=== PATIENT | female | born 1965 | race Caucasian/White ===

== ENCOUNTER 2018-09-25 09:08 | Observation (INO) | payer MEDICARE ==
[~2018-09-25] VITALS: Ht 172.7 cm; Wt 119.0 kg
--- NOTE | 2018-09-25 09:25 | NUR ---
PATIENT TO ROOM VIA WHEELCHAIR AND PHYSICIAN AT BEDSIDE FOR EVAL
[2018-09-25 10:07] LABS: HEMATOCRIT 33.5 % (37.0-47.0); HEMOGLOBIN 11.4 g/dl (12.0-16.0); IMMATURE GRANULOCYTES 0.2 % (0.0-5.0); MEAN CELL VOLUME 90.8 fL CALC (80.0-100.0); MEAN CORPUSCULAR HGB 30.9 pG CALC (26.0-32.0); NEUT# 3.67 thou/uL (2.00-7.15); RED BLOOD COUNT 3.69 mill/uL (4.20-5.60); RED CELL DISTRI WIDTH 13.2 % (11.5-15.5)
[2018-09-25 10:18] LABS: ANION GAP 15 (6-22 (CALC)); BUN 19 mg/dL (7-17); BUN/CREATININE RATIO 17 (12-20 (CALC)); CARBON DIOXIDE 24 mmol/l (22-30); CHLORIDE 98 mmol/l (95-108); CREATININE 1.1 mg/dL (0.5-1.0); GFR 52 ML/MIN (>=60 (CALC)); GFR FOR AFR.AMER. > 60 ML/MIN (>=60 (CALC)); POTASSIUM 3.6 mmol/l (3.5-5.1); SODIUM 134 mmol/l (137-146)
--- NOTE | 2018-09-25 10:20 | NUR ---
PT'S AT NURSES DESK AND INFORMED STAFF THAT PT IS HAVING NAUSEA. NOTIFIED.
--- NOTE | 2018-09-25 10:30 | NUR ---
AT [facility] TO MEDICATE PT WITH ZOFRAN FOR NAUSEA. PT DENIES ANY NAUSEA BUT REPORTS FEELING FLUSHED, AND WEAKNESS TO ENTIRE BODY. PT CAN MOVE ALL EXTREMITIES WITH NO DIFFICULTY. MD NOTIFIED.
[2018-09-25] MEDS ORDERED: FERR SULFATE325 MG PO (10:42)
[2018-09-25] MEDS ORDERED: METFORMIN500 M2 PO (10:42)
[2018-09-25] MEDS ORDERED: LEVOTHYROXIN125 MC1 PO (10:43)
[2018-09-25] MEDS ORDERED: PRAMIPEXOLE1 MG PO (10:44)
[2018-09-25] MEDS ORDERED: AMITRIPTYLIN25 MG PO (10:44)
[2018-09-25] MEDS ORDERED: CRESTOR20 MG PO (10:45)
[2018-09-25] MEDS ORDERED: ACCUPRIL20 MG PO (10:45)
[2018-09-25] MEDS ORDERED: OXTELLAR XR600 MG PO (10:46)
[2018-09-25] MEDS ORDERED: VICTOZA18 MG/3 ML SC (10:46)
[2018-09-25] MEDS ORDERED: MAXZIDE-2537.5 MG/TA PO (10:46)
[2018-09-25] MEDS ORDERED: TRESIBA FL100 UNIT/M SC (10:47)
[2018-09-25] MEDS ORDERED: LEVEMIR100 UNIT/M SC (10:49)
--- NOTE | 2018-09-25 10:50 | NUR ---
MD AT BEDSIDE TO DISCUSS RESULTS AND PLAN OF CARE.
--- NOTE | 2018-09-25 11:39 | NUR ---
PT RETIRNED FROM CT AND IS RESTING COMFORTABLY IN STRETCHER. PT REPORTS MINIMAL SOB UPON LYING FLAT FOR CT SCAN. PT IN NAD AT THIS TIME, RESP EVEN AND UNLABORED. IV FLUIDS INFUSING AND SITE FREE FROM REDNESS AND EDEMA.
--- NOTE | 2018-09-25 12:15 | NUR ---
PT AMBULATED TO BATHROOM WITH A STEADY GAIT.
--- NOTE | 2018-09-25 13:15 | NUR ---
PT AWARE OF BUSY ED AND WAIT TIME. PT DENIES ANY NEEDS AT THIS TIME. CALL MCDANIELS WITHIN REACH.
--- NOTE | 2018-09-25 14:15 | NUR ---
PT RESTING COMFORATBLY IN STRETCHER IN NAD AND REQUESTS SOMETHING TO EAT. PT AWARE OF PENDING ADMISSION AND WAIT TIME. CALL MCDANIELS WITHIN REACH.
[2018-09-25 14:24] LABS: CHOLESTEROL HDL RATIO 3.2 (<4.4 (CALC))
--- NOTE | 2018-09-25 14:25 | NUR ---
REPORT TO ELDA KEN.
--- NOTE | 2018-09-25 14:35 | NUR ---
ELDA KEN AT BEDSIDE FOR TRANSPORT. BEDSIDE REPORT GIVEN AND PT TO ROOM IN STABLE CONDITION ON TELE MONITOR.
--- NOTE | 2018-09-25 14:35 | NUR ---
Admission Note Report Given to: ELDA KEN Transported by: Wheelchair X Stretcher Transported with: X Nurse Transporter X Patent IV O2 X Sba Underwriter
--- NOTE | 2018-09-25 14:38 | NUR ---
PT ARRIVED TO MS2 RM 263 VIA STRETCHER ACCOMPANIED BY EARLY LEARNING TEACHER. PT ALERT AND ORIENTED X3, AMBULATED TO BATHROOM THEN TO BED. ORIENTED TO ROOM AND CALL LIGHT, DISCUSSED POC, RESP EVEN AND UNLABORED. PT HAS EDEMA BLE GREATER ON THE LEFT. SEIZURE PRECAUTIONS IN PLACE. ADMISSION ASSESSMENT COMPLETED. CALL LIGHT IN REACH,CONTINUE TO MONITOR, SR. CONSULTANT AT BEDSIDE.
[2018-09-25 14:40] VITALS: BP 163/80
[2018-09-25 16:43] VITALS: BP 122/60
--- NOTE | 2018-09-25 17:19 | NUR ---
DISCUSSED US WITH PT, PT MEDICATED PER OCT. PT IN AGREEMENT. PHARMACEUTICAL SCIENTIST TAKING PT DOWN TO US. CONTINUE TO MONITOR.
--- NOTE | 2018-09-25 17:49 | NUR ---
PT RETURNED FROM US, NO SIGNS OF DISTRESS NOTED, RESP EVEN AND UNLABORED. CALL LIGHT IN REACH, CONTINUE TO MONITOR.
--- NOTE | 2018-09-25 19:15 | NUR ---
REPORT FROM JESUS MANUEL SCHROEDER. PT NOTED TO BED RESTING IN BED WITH AT BEDSIDE. ALERT AND ORIENTED. PT DENIES ANY PAIN OR DISCOMFORT AT THIS TIME. IV SITE APPEARS HEALTHY. INTERNAL REVENUE AGENT IN PLACE. RESPIRATIONS EVEN AND UNLABORED. DISCUSSED POC PT VERBALIZED UNDERSTANDING. CALL LIGHT WITHIN REACH. WILL CONTINUE TO MONITOR.
[2018-09-25 20:05] VITALS: BP 113/67
--- NOTE | 2018-09-25 21:40 | NUR ---
FIFTH GRADE TEACHER IN ROOM WITH PT ADMINISTERED MEDICATIONS ORDERED. PT C/O SWELLING IN FEET AND HAND. PT STATES SHE TAKES HER DIURETIC IN EVENING AND ALSO TAKES SEIZURE MEDICATION THAT OUR PHARMACY DOES NOT HAVE. WHEN PT ASKED IF SHE HAD SOMEONE WHO COULD BRING HER THE MEDICATION SHE STATES NO. FIFTH GRADE TEACHER PLACED CALL TO DR SAM INFORMED ABOUT DIURETICS MEDICATION TIMES AND SEIZURE MEDICATION NOT AVAILABLE. ORDERS RECIEVED TO CHANGE DIURETIC MEDICATION TIME AND OFFERED TO REPLACE SEIZURE MEDICATION WITH [facility] UNTIL PTS COULD BE BROUGHT IN. PT REFUSED STATING SHE DOES NOT LIKE THE WAY KEPPRA MAKES HER FEEL AND SHE WOULD WAIT TO TAKE HERS TOMORROW WHEN HER COULD GO GET IT.
--- NOTE | 2018-09-25 22:16 | NUR ---
PT NOW C/O GENERALIZED ITCHINESS NO RASH NOTED. PT ALSO STATES SHE FELT SOB FOR A COUPLE OF MINUTES DENIES ANY CHEST PAIN. VS WNL BP 123/77 75 18 99% RA. PT STATES SHE FEELS WEAK AND JUST DOES NOT FEEL GOOD. ORDER OBTAINED FOR BENADRYL.
[2018-09-25 23:55] VITALS: BP 138/76
--- NOTE | 2018-09-26 02:16 | NUR ---
PT RESTING IN BED WITH EYES CLOSED. REMAINS IN ROOM THROUGHOUT NIGHT. PT WAKES EASILY. SWELLING IN HAND AND FEET GOING DOWN SIGNIFICANTLY. PT STATES ITCHING HAS SUBSIDED. DENIES ANY PAIN OR DISCOMFORT AT THIS TIME. CALL LIGHT WITHIN REACH. WILL CONTINUE TO MONITOR.
[2018-09-26 04:10] VITALS: BP 113/72
--- NOTE | 2018-09-26 05:30 | NUR ---
PT C/O HEADACHE REQUESTING TYLENOL. HOT TOP LINER PLACED CALL TO DR. SAM AND ORDER RECIEVED FOR TYLENOL PO Q6H PRN. WILL ADMINISTERED WHEN AVAILABLE.
--- NOTE | 2018-09-26 07:29 | NUR ---
PT COMPLAIN OF CHEST PAIN ORDER EKG; NO S/S OF DISTRESS NOTED; WILL CONTINUE TO MONITOR.
[2018-09-26 07:52] VITALS: BP 137/77
--- NOTE | 2018-09-26 08:08 | NUR ---
ASSESSMENT COMPLETED; EXPLAINED TO PT WILL ADMINISTER NITRO, AN COCKTAIL; PT IMMEDIATELY STATED THAT "PAIN HAS GONE, DOES NOT WANT ABOVE MEDS;" ADMINISTERED SCHEDULED MEDS, TOLERATED WELL; RADIAL PULSES STRONG; PEDAL PULSE WEAK; ABD HYPOACTIVE SOUND; TELE IN PLACE; RASH NOTED ON BILAT FEET; WANTS TO KNOW IF SHE WILL BE GOING HOME TODAY AND IF HER SPOUSE SHOULD GET HER SEIZURE MEDICATION FROM HOME; TOLD HER HE SHOULD BRING BRING HER MEDS; NOT SURE IF SHE WILL BE DC TODAY; NOW TALKING ON THE PHONE; NO DISTRESS NOTED; VITALS STABLE; WILL CONTINUE TO MOINTOR. REQUEST TOAST AND PEDERSEN; KITCHEN AWARE;
--- NOTE | 2018-09-26 09:00 | NUR ---
PT CALLED, TOLD ONLINE BANKING SPECIALIST SHE HAD A SM SEZUIRE THAT LASTED 3/5 MINS; NO ONE PRESENT WHEN THIS HAPPENED; STEVIE GRANDE AWARE; PT SITTING UP IN BED ON HER PHONE NO S/S OF DISTRESS NOTED; WILL CONTINUE TO MONITOR.
[2018-09-26 11:05] VITALS: BP 118/76
--- NOTE | 2018-09-26 11:51 | NUR ---
PT LAYING IN BED WATCHING TV; SPOUSE AT BEDSIDE; WANTS TO KNOW WHEN LUNCH WILL BE HERE; VOICE NO OTHER CONCERNS; RESP EVEN AND UNLBAORED; NO S/S OF DISTRESS NOTED;
--- NOTE | 2018-09-26 15:11 | NUR ---
Discharge instructions given. Patient verbalizes understanding of same. Discharged in stable condition via Ambulatory to Home with spouse. All belongings sent with pt INCLUDING HER OWN MED [id number];
== END 2018-09-26 15:12 | disposition home or self-care (01) ==
LOC: ED 09:08 → ED-I 12:25 → ED 13:11 → MS2 13:12
PROVIDERS: Family Medicine; Nurse Practitioner Family; ADMIT Internal Medicine; ATTEND Internal Medicine
DX: R07.2 Precordial pain (principal); I12.9 Hypertensive chronic kidney disease with stage 1 through stage 4 chronic kidney disease, or unspecified chronic kidney disease; E11.22 Type 2 diabetes mellitus with diabetic chronic kidney disease; N18.3 Chronic kidney disease, stage 3 (moderate); G40.909 Epilepsy, unspecified, not intractable, without status epilepticus; E03.9 Hypothyroidism, unspecified; E78.5 Hyperlipidemia, unspecified; E11.42 Type 2 diabetes mellitus with diabetic polyneuropathy; K21.9 Gastro-esophageal reflux disease without esophagitis; E66.01 Morbid (severe) obesity due to excess calories; G25.81 Restless legs syndrome; D64.9 Anemia, unspecified; M79.89 Other specified soft tissue disorders; R06.02 Shortness of breath; Z79.4 Long term (current) use of insulin; Z86.711 Personal history of pulmonary embolism; Z82.49 Family history of ischemic heart disease and other diseases of the circulatory system; R53.1 Weakness; R42 Dizziness and giddiness
CPT/HCPCS: G0378; J1650; Q9967

== ENCOUNTER 2018-11-20 13:15 | Emergency (ER) | payer MEDICARE ==
[~2018-11-20] VITALS: Ht 172.7 cm; Wt 102.0 kg
[~2018-11-20 13:15] MED LIST: ACCUPRIL20 MG PO; AMITRIPTYLIN25 MG PO; CRESTOR20 MG PO; FERR SULFATE325 MG PO; LEVEMIR100 UNIT/M SC; LEVOTHYROXIN125 MC1 PO; MAXZIDE-2537.5 MG/TA PO; METFORMIN500 M2 PO; OXTELLAR XR600 MG PO; PRAMIPEXOLE1 MG PO; TRESIBA FL100 UNIT/M SC; VICTOZA18 MG/3 ML SC
[2018-11-20] MEDS ORDERED: TRESIBA FL100 UNIT/M SC (13:52)
[2018-11-20] MEDS ORDERED: MAXZIDE-2537.5 MG/TA PO (13:53)
[2018-11-20] MEDS ORDERED: LEVOTHYROXIN175 MC1 PO (14:03)
[2018-11-20] MEDS ORDERED: METFORMIN500 MG PO (14:04)
[2018-11-20 14:13] LABS: HEMATOCRIT 33.5 % (37.0-47.0); HEMOGLOBIN 11.3 g/dl (12.0-16.0); IMMATURE GRANULOCYTES 0.3 % (0.0-5.0); MEAN CELL VOLUME 88.6 fL CALC (80.0-100.0); MEAN CORPUSCULAR HGB 29.9 pG CALC (26.0-32.0); MEAN CORPUSCULAR HGB CONC 33.7 g/L CALC (32.0-36.0); NEUT# 5.89 thou/uL (2.00-7.15); RED BLOOD COUNT 3.78 mill/uL (4.20-5.60); RED CELL DISTRI WIDTH 12.9 % (11.5-15.5)
[2018-11-20 14:20] LABS: ALBUMIN 4.3 g/dL (3.2-5.0); ALKALINE PHOSPHATASE 74 u/l (38-126); ANION GAP 17 (6-22 (CALC)); BILIRUBIN, TOTAL 0.6 mg/dL (0.0-1.4); BUN 24 mg/dL (7-17); BUN/CREATININE RATIO 16 (12-20 (CALC)); CARBON DIOXIDE 26 mmol/l (22-30); CHLORIDE 98 mmol/l (95-108); CREATININE 1.5 mg/dL (0.5-1.0); GFR 36 ML/MIN (>=60 (CALC)); GFR FOR AFR.AMER. 44 ML/MIN (>=60 (CALC)); POTASSIUM 3.6 mmol/l (3.5-5.1); SGOT/AST 31 u/l (14-36); SODIUM 138 mmol/l (137-146); TOTAL PROTEIN 6.8 g/dL (6.3-8.2)
[2018-11-20 15:07] LABS: BARBITURATES NEGATIVE (NEGATIVE); COCAINE NEGATIVE (NEGATIVE); METHADONE NEGATIVE (NEGATIVE); OXCYCODONE NEGATIVE (NEGATIVE); TETRAHYDROCANNABIONOL NEGATIVE (NEGATIVE); TRICYLIC ANTIDEPRESSANTS POSITIVE (NEGATIVE); URINE BILIRUBIN - DIPSTICK NEGATIVE (NEGATIVE); URINE BLOOD DIPSTICK NEGATIVE (NEGATIVE); URINE COLOR YELLOW; URINE GLUCOSE - DIPSTICK NEGATIVE (NEGATIVE); URINE KETONE NEGATIVE (NEGATIVE); URINE LEUK ESTERASE NEGATIVE (NEGATIVE); URINE NITRITE - DIPSTICK NEGATIVE (Negative); URINE PROTEIN - DIPSTICK NEGATIVE (NEG-TRACE); URINE SPECIFIC GRAVITY 1.025; URINE UROBILINOGEN - DIPSTICK 0.2 E.U./dL (0.2)
[2018-11-20 15:41] VITALS: BP 104/54
== END 2018-11-20 16:01 | disposition home or self-care (01) ==
LOC: ED 13:15
PROVIDERS: Emergency Medicine
DX: R53.1 Weakness (principal); E11.40 Type 2 diabetes mellitus with diabetic neuropathy, unspecified; I10 Essential (primary) hypertension; G40.909 Epilepsy, unspecified, not intractable, without status epilepticus; R42 Dizziness and giddiness

== ENCOUNTER 2019-01-11 03:25 | Emergency (ER) | payer MEDICARE ==
[~2019-01-11] VITALS: Ht 170.2 cm; Wt 118.8 kg
[~2019-01-11 03:25] MED LIST changes: +LEVOTHYROXIN175 MC1 PO; +METFORMIN500 MG PO
[2019-01-11 04:01] LABS: URINE BILIRUBIN - DIPSTICK NEGATIVE (NEGATIVE); URINE BLOOD DIPSTICK NEGATIVE (NEGATIVE); URINE COLOR YELLOW; URINE GLUCOSE - DIPSTICK >=1000 mg/dL (NEGATIVE); URINE KETONE NEGATIVE (NEGATIVE); URINE LEUK ESTERASE NEGATIVE (NEGATIVE); URINE NITRITE - DIPSTICK NEGATIVE (Negative); URINE PROTEIN - DIPSTICK NEGATIVE (NEG-TRACE); URINE UROBILINOGEN - DIPSTICK 0.2 E.U./dL (0.2)
[2019-01-11 04:09] LABS: HEMATOCRIT 31.2 % (37.0-47.0); HEMOGLOBIN 10.8 g/dl (12.0-16.0); IMMATURE GRANULOCYTES 0.5 % (0.0-5.0); MEAN CELL VOLUME 89.1 fL CALC (80.0-100.0); MEAN CORPUSCULAR HGB 30.9 pG CALC (26.0-32.0); MEAN CORPUSCULAR HGB CONC 34.6 g/L CALC (32.0-36.0); NEUT# 3.91 thou/uL (2.00-7.15); RED BLOOD COUNT 3.5 mill/uL (4.20-5.60); RED CELL DISTRI WIDTH 13.9 % (11.5-15.5)
[2019-01-11 04:16] LABS: ALBUMIN 4.4 g/dL (3.2-5.0); ALKALINE PHOSPHATASE 68 u/l (38-126); ANION GAP 14 (6-22 (CALC)); BILIRUBIN, TOTAL 0.5 mg/dL (0.0-1.4); BUN 24 mg/dL (7-17); BUN/CREATININE RATIO 20 (12-20 (CALC)); CARBON DIOXIDE 31 mmol/l (22-30); CHLORIDE 98 mmol/l (95-108); CREATININE 1.2 mg/dL (0.5-1.0); GFR 47 ML/MIN (>=60 (CALC)); GFR FOR AFR.AMER. 56 ML/MIN (>=60 (CALC)); POTASSIUM 3.6 mmol/l (3.5-5.1); SGOT/AST 51 u/l (14-36); SODIUM 138 mmol/l (137-146); TOTAL PROTEIN 6.8 g/dL (6.3-8.2)
[2019-01-11 04:28] LABS: MYOGLOBIN 105 ng/mL (0 - 62)
[2019-01-11] MEDS ORDERED: TROKENDI XR200 MG PO (04:37)
[2019-01-11 04:49] VITALS: BP 121/56
== END 2019-01-11 05:05 | disposition home or self-care (01) ==
LOC: ED 03:25
PROVIDERS: Emergency Medicine
DX: E11.65 Type 2 diabetes mellitus with hyperglycemia (principal); R60.0 Localized edema; I10 Essential (primary) hypertension; Z79.4 Long term (current) use of insulin

== ENCOUNTER 2019-03-26 01:12 | Emergency (ER) | payer MEDICARE ==
[~2019-03-26] VITALS: Ht 170.2 cm; Wt 124.4 kg
[~2019-03-26 01:12] MED LIST changes: +TROKENDI XR200 MG PO
[2019-03-26 02:12] LABS: URINE BILIRUBIN - DIPSTICK NEGATIVE (NEGATIVE); URINE BLOOD DIPSTICK NEGATIVE (NEGATIVE); URINE COLOR YELLOW; URINE GLUCOSE - DIPSTICK 500 mg/dL (NEGATIVE); URINE KETONE NEGATIVE (NEGATIVE); URINE LEUK ESTERASE NEGATIVE (NEGATIVE); URINE NITRITE - DIPSTICK NEGATIVE (Negative); URINE PROTEIN - DIPSTICK NEGATIVE (NEG-TRACE); URINE SPECIFIC GRAVITY 1.015; URINE UROBILINOGEN - DIPSTICK 0.2 E.U./dL (0.2)
[2019-03-26 02:33] LABS: HEMATOCRIT 31.1 % (37.0-47.0); HEMOGLOBIN 10.6 g/dl (12.0-16.0); IMMATURE GRANULOCYTES 0.4 % (0.0-5.0); MEAN CELL VOLUME 89.9 fL CALC (80.0-100.0); MEAN CORPUSCULAR HGB 30.6 pG CALC (26.0-32.0); MEAN CORPUSCULAR HGB CONC 34.1 g/L CALC (32.0-36.0); NEUT# 3.32 thou/uL (2.00-7.15); RED BLOOD COUNT 3.46 mill/uL (4.20-5.60); RED CELL DISTRI WIDTH 13.7 % (11.5-15.5)
[2019-03-26 02:49] LABS: ALBUMIN 3.8 g/dL (3.2-5.0); ALKALINE PHOSPHATASE 79 u/l (38-126); ANION GAP 10 (6-22 (CALC)); BILIRUBIN, TOTAL 0.5 mg/dL (0.0-1.4); BUN 25 mg/dL (7-17); BUN/CREATININE RATIO 24 (12-20 (CALC)); CARBON DIOXIDE 30 mmol/l (22-30); CHLORIDE 100 mmol/l (95-108); GFR 58 ML/MIN (>=60 (CALC)); GFR FOR AFR.AMER. > 60 ML/MIN (>=60 (CALC)); POTASSIUM 3.6 mmol/l (3.5-5.1); SGOT/AST 39 u/l (14-36); SODIUM 137 mmol/l (137-146); TOTAL PROTEIN 6.3 g/dL (6.3-8.2)
[2019-03-26 03:17] LABS: TSH, 3RD GENERATION 3.93 uIU/mL (0.47 - 4.68)
[2019-03-26] MEDS ORDERED: BUMETANIDE1 MG PO (03:33)
[2019-03-26 03:49] VITALS: BP 140/83
== END 2019-03-26 03:50 | disposition home or self-care (01) ==
LOC: ED 01:12
PROVIDERS: Family Medicine
DX: R60.0 Localized edema (principal); E11.9 Type 2 diabetes mellitus without complications; I10 Essential (primary) hypertension; G40.909 Epilepsy, unspecified, not intractable, without status epilepticus

== ENCOUNTER 2019-05-22 00:38 | Emergency (ER) | payer MEDICARE ==
[~2019-05-22] VITALS: Ht 170.2 cm; Wt 124.0 kg
[~2019-05-22 00:38] MED LIST changes: +BUMETANIDE1 MG PO
[2019-05-22] MEDS ORDERED: KEFLEX500 M1 PO (02:07)
[2019-05-22 02:35] VITALS: BP 140/82
== END 2019-05-22 02:35 | disposition home or self-care (01) ==
LOC: ED 00:38
DX: S61.431A Puncture wound without foreign body of right hand, initial encounter (principal); E11.9 Type 2 diabetes mellitus without complications; I10 Essential (primary) hypertension; G40.909 Epilepsy, unspecified, not intractable, without status epilepticus; W29.8XXA Contact with other powered hand tools and household machinery, initial encounter; Y93.89 Activity, other specified; Y92.009 Unspecified place in unspecified non-institutional (private) residence as the place of occurrence of the external cause; Z79.4 Long term (current) use of insulin

== ENCOUNTER 2019-06-21 09:04 | Emergency (ER) | payer MEDICARE ==
[~2019-06-21] VITALS: Ht 170.2 cm; Wt 118.0 kg
[~2019-06-21 09:04] MED LIST changes: +KEFLEX500 M1 PO
[2019-06-21 10:07] LABS: HEMATOCRIT 32.3 % (37.0-47.0); HEMOGLOBIN 10.7 g/dl (12.0-16.0); IMMATURE GRANULOCYTES 0.5 % (0.0-5.0); MEAN CELL VOLUME 90.5 fL CALC (80.0-100.0); MEAN CORPUSCULAR HGB CONC 33.1 g/L CALC (32.0-36.0); NEUT# 4.84 thou/uL (2.00-7.15); RED BLOOD COUNT 3.57 mill/uL (4.20-5.60); RED CELL DISTRI WIDTH 13.6 % (11.5-15.5)
[2019-06-21 10:26] LABS: ALKALINE PHOSPHATASE 73 u/l (38-126); ANION GAP 12 (6-22 (CALC)); BILIRUBIN, TOTAL 0.4 mg/dL (0.0-1.4); BUN 23 mg/dL (7-17); BUN/CREATININE RATIO 24 (12-20 (CALC)); CARBON DIOXIDE 29 mmol/l (22-30); CHLORIDE 101 mmol/l (95-108); GFR 58 ML/MIN (>=60 (CALC)); GFR FOR AFR.AMER. > 60 ML/MIN (>=60 (CALC)); POTASSIUM 4.2 mmol/l (3.5-5.1); SGOT/AST 24 u/l (14-36); SODIUM 138 mmol/l (137-146); TOTAL PROTEIN 6.5 g/dL (6.3-8.2)
[2019-06-21 11:06] LABS: URINE BILIRUBIN - DIPSTICK NEGATIVE (NEGATIVE); URINE BLOOD DIPSTICK NEGATIVE (NEGATIVE); URINE COLOR YELLOW; URINE GLUCOSE - DIPSTICK >=1000 mg/dL (NEGATIVE); URINE KETONE TRACE mg/dL (NEGATIVE); URINE LEUK ESTERASE NEGATIVE (NEGATIVE); URINE NITRITE - DIPSTICK NEGATIVE (Negative); URINE PH 5.5 (4.5-8.0); URINE PROTEIN - DIPSTICK NEGATIVE (NEG-TRACE); URINE SPECIFIC GRAVITY 1.025; URINE UROBILINOGEN - DIPSTICK 0.2 E.U./dL (0.2)
[2019-06-21] MEDS ORDERED: TESSALON PERLE100 MG PO (11:51)
[2019-06-21] MEDS ORDERED: LOMOTIL2.5 MG PO (11:51)
[2019-06-21] MEDS ORDERED: ZOFRAN4 MG/TAB PO (11:51)
[2019-06-21 12:24] VITALS: BP 149/67
== END 2019-06-21 12:24 | disposition home or self-care (01) ==
LOC: ED 09:04
PROVIDERS: Family Medicine
DX: J06.9 Acute upper respiratory infection, unspecified (principal); A08.4 Viral intestinal infection, unspecified; E11.9 Type 2 diabetes mellitus without complications; I10 Essential (primary) hypertension; Z79.84 Long term (current) use of oral hypoglycemic drugs

== ENCOUNTER 2019-08-06 | Emergency (ER) | payer MEDICARE ==
[~2019-08-06] MED LIST changes: +LOMOTIL2.5 MG PO; +METFORMIN1000 MG PO; -METFORMIN500 MG PO; +PRAMIPEXOLE DIHY1 MG PO; -PRAMIPEXOLE1 MG PO; +TESSALON PERLE100 MG PO; +ZOFRAN4 MG/TAB PO
[2019-08-06 06:41] LABS: HEMATOCRIT 33.2 % (37.0-47.0); HEMOGLOBIN 11.1 g/dl (12.0-16.0); IMMATURE GRANULOCYTES 0.4 % (0.0-5.0); MEAN CELL VOLUME 88.8 fL CALC (80.0-100.0); MEAN CORPUSCULAR HGB 29.7 pG CALC (26.0-32.0); MEAN CORPUSCULAR HGB CONC 33.4 g/L CALC (32.0-36.0); NEUT# 4.02 thou/uL (2.00-7.15); RED BLOOD COUNT 3.74 mill/uL (4.20-5.60); RED CELL DISTRI WIDTH 13.8 % (11.5-15.5)
[2019-08-06 06:46] LABS: ALBUMIN 4.4 g/dL (3.2-5.0); ALKALINE PHOSPHATASE 73 u/l (38-126); ANION GAP 15 (6-22 (CALC)); BILIRUBIN, TOTAL 0.5 mg/dL (0.0-1.4); BUN 21 mg/dL (7-17); BUN/CREATININE RATIO 19 (12-20 (CALC)); CARBON DIOXIDE 27 mmol/l (22-30); CHLORIDE 97 mmol/l (95-108); CREATININE 1.1 mg/dL (0.5-1.0); GFR 52 ML/MIN (>=60 (CALC)); GFR FOR AFR.AMER. > 60 ML/MIN (>=60 (CALC)); POTASSIUM 3.9 mmol/l (3.5-5.1); SGOT/AST 39 u/l (14-36); SODIUM 135 mmol/l (137-146); TOTAL PROTEIN 7.4 g/dL (6.3-8.2)
[2019-08-06] MEDS ORDERED: NAPROXEN DR500 MG PO (09:11)
== END 2019-08-06 09:31 | disposition home or self-care (01) ==
PROVIDERS: Emergency Medicine
DX: M25.572 Pain in left ankle and joints of left foot (principal); M79.89 Other specified soft tissue disorders; E11.9 Type 2 diabetes mellitus without complications; I10 Essential (primary) hypertension; G40.909 Epilepsy, unspecified, not intractable, without status epilepticus; Z86.711 Personal history of pulmonary embolism

== ENCOUNTER 2019-10-23 | Emergency (ER) | payer MEDICARE ==
[~2019-10-23] MED LIST changes: +NAPROXEN DR500 MG PO
[2019-10-23 16:39] LABS: HEMATOCRIT 31.8 % (37.0-47.0); HEMOGLOBIN 10.8 g/dl (12.0-16.0); IMMATURE GRANULOCYTES 0.4 % (0.0-5.0); MEAN CELL VOLUME 86.6 fL CALC (80.0-100.0); MEAN CORPUSCULAR HGB 29.4 pG CALC (26.0-32.0); NEUT# 4.06 thou/uL (2.00-7.15); RED BLOOD COUNT 3.67 mill/uL (4.20-5.60); RED CELL DISTRI WIDTH 13.8 % (11.5-15.5)
[2019-10-23 16:43] LABS: URINE BILIRUBIN - DIPSTICK NEGATIVE (NEGATIVE); URINE BLOOD DIPSTICK NEGATIVE (NEGATIVE); URINE COLOR YELLOW; URINE GLUCOSE - DIPSTICK >=1000 mg/dL (NEGATIVE); URINE KETONE NEGATIVE (NEGATIVE); URINE LEUK ESTERASE NEGATIVE (NEGATIVE); URINE NITRITE - DIPSTICK NEGATIVE (Negative); URINE PH 6.5 (4.5-8.0); URINE PROTEIN - DIPSTICK NEGATIVE (NEG-TRACE); URINE SPECIFIC GRAVITY 1.015; URINE UROBILINOGEN - DIPSTICK 0.2 E.U./dL (0.2)
[2019-10-23 16:54] LABS: ALBUMIN 4.3 g/dL (3.2-5.0); ALKALINE PHOSPHATASE 64 u/l (38-126); AMYLASE 70 u/l (30-110); ANION GAP 12 (6-22 (CALC)); BILIRUBIN, TOTAL 0.4 mg/dL (0.0-1.4); BUN 23 mg/dL (7-17); BUN/CREATININE RATIO 21 (12-20 (CALC)); CARBON DIOXIDE 30 mmol/l (22-30); CHLORIDE 95 mmol/l (95-108); CREATININE 1.1 mg/dL (0.5-1.0); GFR 51 ML/MIN (>=60 (CALC)); GFR FOR AFR.AMER. > 60 ML/MIN (>=60 (CALC)); LIPASE 458 u/l (23-300); MAGNESIUM 1.7 mg/dL (1.6-2.3); POTASSIUM 3.8 mmol/l (3.5-5.1); SGOT/AST 32 u/l (14-36); SODIUM 133 mmol/l (137-146); TOTAL PROTEIN 6.7 g/dL (6.3-8.2)
[2019-10-23 17:11] LABS: ACT PARTIAL THROMBO TIME 25.5 SECONDS (20.0-32.5); INTERNATIONAL NORMALIZED RATIO 1.1 RATIO (0.7-1.3); PROTHROMBIN TIME 11.1 SECONDS (9.0-12.5)
[2019-10-23] MEDS ORDERED: LEVEMIR100 UNIT/M SC (19:03)
[2019-10-23] MEDS ORDERED: POT CHLORIDE10 ME5 PO (19:04)
== END 2019-10-23 19:16 | disposition home or self-care (01) ==
DX: F41.9 Anxiety disorder, unspecified (principal); E11.9 Type 2 diabetes mellitus without complications; I10 Essential (primary) hypertension; G40.909 Epilepsy, unspecified, not intractable, without status epilepticus; Z86.711 Personal history of pulmonary embolism; Z79.4 Long term (current) use of insulin; R06.02 Shortness of breath
CPT/HCPCS: Q9967

== ENCOUNTER 2020-01-01 20:52 | Emergency (ER) | payer MEDICARE ==
[~2020-01-01 20:52] MED LIST changes: +POT CHLORIDE10 ME5 PO
[2020-01-01] MEDS ORDERED: SIMVASTATIN40 MG PO (21:17)
[2020-01-01] MEDS ORDERED: TRILEPTAL600 M1 PO (21:18)
[2020-01-01] MEDS ORDERED: DIOVAN80 MG PO (21:18)
[2020-01-01] MEDS ORDERED: LASIX 40 MG TAB40 MG PO (21:19)
[2020-01-01 21:35] VITALS: BP 154/66
[2020-01-01] MEDS ORDERED: TRAMADOL HCL50 MG PO (22:00)
[2020-01-01] MEDS ORDERED: VOLTAREN - GENE75 MG PO (22:00)
== END 2020-01-01 22:24 | disposition home or self-care (01) ==
LOC: ED 20:52
DX: M79.671 Pain in right foot (principal); E11.9 Type 2 diabetes mellitus without complications; I10 Essential (primary) hypertension; G40.909 Epilepsy, unspecified, not intractable, without status epilepticus; Z79.4 Long term (current) use of insulin